=== PATIENT | female | born 2000 | race Two or more races ===

== ENCOUNTER 2018-03-19 08:09 | Emergency (ER) | payer SELFPAY ==
[~2018-03-19] VITALS: Ht 152.4 cm; Wt 47.6 kg
[2018-03-19 08:19] VITALS: BP 104/54
[2018-03-19] MEDS ORDERED: BACITRACIN TOP OINT 1 UD PKG TOP ONE (08:58)
[2018-03-19] MEDS ORDERED: cefTRIAXone SOD 1,000 MG VL IM ONE (09:15)
== END 2018-03-19 09:48 | disposition home or self-care (01) ==
LOC: ER 08:09
DX: N61.0 Mastitis without abscess (principal)
CPT/HCPCS: 96372; 99283; J0696